=== PATIENT | female | born 1980 | race Hispanic/Latino ===

== ENCOUNTER 2018-11-04 07:30 | Inpatient (IN) | payer OTHER, SELFPAY ==
[2018-11-07] MEDS ORDERED: CEFAZOLIN/SWI 2gm 2 GM/20 ML SYR IV SCH
[2018-11-07] MEDS ORDERED: CEFAZOLIN 2 GM in NA CHLORIDE 0.9% 100 ML IVPB ONE (13:47)
[2018-11-07 14:09] LABS: Absolute Lymphocytes (CBC) 1.2 K/uL (0.7-4.9); Basophils % 0.4 % (0-1.3); Hematocrit 36.2 % (36.0-45.0); Lymphocytes % 15.2 % (15.3-44.8); MPV 8.5 fL (7.6-11.3); RBC Red Blood Cell Count 4.08 M/uL (3.86-4.86)
[2018-11-07 14:12] LABS: Urine Appearance TURBID; Urine Bilirubin NEGATIVE (NEG); Urine Blood NEGATIVE (NEG); Urine Color YELLOW; Urine Glucose NEGATIVE (NEG); Urine Microscopic Reflex ORDER UMIC; Urine Protein TRACE (NEG); Urine Urobilinogen 0.2 mg/dL (0.2-1.0); Urine pH 6.5 (5.0-7.0)
[2018-11-07 14:14] LABS: Protime INR 0.89
[2018-11-07 14:20] LABS: Urine Bacteria LOADED /HPF (<20); Urine Culture Reflex Order REFLEXED; Urine Mucus 2+ /HPF (NONE SEEN)
[2018-11-07 22:24] LABS: RPR (Rapid Plasma Reagin) NON-REACT (NON-REACT)
[2018-11-08] MEDS ORDERED: Ringers Lactate 2,000 ML IV ONE (03:48)
--- OUTSIDE RECORDS SUMMARY | 2018-11-08 04:26 | XMS REPORT ---
:1980 [facility] Address [address] [place] [address] Dr. Maldonado [address] [place] [id number] Care Team Providers Name Role Phone Unavailable Unavailable Unavailable Problems This patient has no known problems. Allergies, Adverse Reactions, Alerts This patient has no known allergies or adverse reactions. Medications This patient has no known medications.
[2018-11-08] MEDS ORDERED: Ringers Lactate 1,000 ML IV PRN (04:41)
[2018-11-08] MEDS ORDERED: NA CIT/CITRIC AC 30 ML ORAL UDC PO ONE (04:44)
[2018-11-08 04:53] VITALS: BMI 30.7
[2018-11-08] MEDS ORDERED: METOCLOPRAMIDE 10 MG/2mL INJ IV SCH (05:00)
[2018-11-08] MEDS ORDERED: Ringers Lactate 1,000 ML IV SCH (05:00)
[2018-11-08] MEDS ORDERED: CEFAZOLIN 2 GM in NA CHLORIDE 0.9% 100 ML IVPB SCH (05:00)
[2018-11-08] MEDS ORDERED: CEFAZOLIN/SWI 2gm 2 GM/20 ML SYR ONE (05:54)
[2018-11-08] MEDS ORDERED: MORPHINE SULFATE/PF 1 MG/ML (10 ML AMP) ONE (07:19)
[2018-11-08] MEDS ORDERED: METHYLERGONOVINE 0.2MG/ML AMP IM ONE (07:25)
[2018-11-08] MEDS ORDERED: CARBOPROST TROME 250 MCG/ML IM ONE (07:25)
[2018-11-08] MEDS ORDERED: OXYTOCIN 10 UNIT/ML ML IV ONE ×3 (07:34→07:55)
[2018-11-08] MEDS ORDERED: ONDANSETRON 4 MG (ODT) TAB PO PRN (08:16)
[2018-11-08] MEDS ORDERED: DIPHENHYDRAMINE 25 MG TAB/CAP PO PRN (08:16)
[2018-11-08] MEDS ORDERED: ONDANSETRON 4 MG/2 ML VIAL IV PRN (08:16)
[2018-11-08] MEDS ORDERED: CEFAZOLIN/SWI 1gm 1 GM/10 ML SYR IV SCH (08:16)
[2018-11-08] MEDS ORDERED: KETOROLAC 30 MG/ML INJ IM PRN (08:16)
[2018-11-08] MEDS ORDERED: BISACODYL 10 MG RECTAL SUPP RECT PRN (08:16)
[2018-11-08] MEDS ORDERED: ACETAMINOPHEN 500 MG TAB PO PRN ×2 (08:16)
[2018-11-08] MEDS ORDERED: D5LR 1,000 ML with OXYTOCIN 20 UNIT IV SCH ×2 (09:00)
[2018-11-08] MEDS ORDERED: FAMOTIDINE 20 MG/2 ML VIAL IV SCH (09:00)
[2018-11-08] MEDS ORDERED: OXYTOCIN/LR 20 UNIT/1,000 ML BAG IV SCH (09:00)
[2018-11-08] MEDS: METHYLERGONOVINE 0.2 MG TAB PO PRN ×3 (12:26→20:03)
[2018-11-08] MEDS: KETOROLAC 30 MG/ML INJ IV PRN (16:08)
[2018-11-08] MEDS ORDERED: Ringers Lactate 1,000 ML IV ONE (16:40)
--- NOTE | 2018-11-08 19:00 | OP ---
Surgeon: Emery Maravilla MD Rounding Machine Operator: John Thao M.D. Anesthesiologist: Spinal block anesthesia by Dr. Tapia. Indications: A 37-year-old 4, para 3, last delivery by section for repeat section. Infection, blood loss, anesthetic complications, injury to bladder, bowel, ureter, postoper ative complications, clots in legs, and pneumonia discussed. The patient knows fully well this does not constitute all the possible problems that could occur during or following surgery and knows with each the risk for complications is greater. Description Of Procedure: After time out, a Pfannenstiel incision was created over the previous inci miracle site. The incision was carried to the fascia. The fascia was incised and incision carried wallace sversely bilaterally. Anterior fascial plane was developed with both blunt and sharp dissection. Th e underlying rectus muscle was . Peritoneum entered bluntly. Bladder flap developed. Low transverse uterine incision created. An estimated 7-pound plus or minus female was delivered without difficulties. Apgars 9 and 9. Cord blood specimen was obtained. Placenta was removed manually. U terus cleared of clot and blood and exteriorized. Baby had nuchal cord x1. Moderate hypotonus, 0.2 mg of Methergine IM and 10 units of Pitocin into the myometrium. Estimated blood loss 1200 mL. The cervical os dilated with ring clamp. Uterus closed with a running locked stitch of 1 chromic. Gutte rs cleared of clot and blood. Uterus was replaced in peritoneal cavity. No further bleeding was see n. Muscles closed with 0 Vicryl ibcevy-yx-aoeqt stitch in the right rectus muscle for complete hemos tasis of small tear at that point. Fascia closed with 1 Vicryl running from either angle to the midl ine. Subcutaneous tissue closed with 2-0 plain. Absorbable lazaro placed and then metal lazaro. Patient had been given 2 g of Ancef prior to the procedure. Tolerated all procedures well. Transfer red back to her room in good condition. Final Diagnoses: Term intrauterine . Repeat section. Spinal block anesthesia. M oderate uterine hypotonus. DARIEL/ROSIE Voice ID: [id number] Report ID: [id number]
[2018-11-08] MEDS: Oxycodone HCl/Acetaminophen 1 TAB TAB PO PRN (22:15)
[2018-11-09] MEDS: METHYLERGONOVINE 0.2 MG TAB PO PRN
[2018-11-09] MEDS: KETOROLAC 30 MG/ML INJ IV PRN (06:05)
[2018-11-09] MEDS: IBUPROFEN 200 MG TAB PO PRN ×3 (07:26→20:50)
[2018-11-09] MEDS ORDERED: MAGNESIUM HYDROXIDE 8% 30 ML PO PRN (08:16)
--- NOTE | 2018-11-09 08:52 | PN ---
Mallika Shaw looking quite good this morning. H and H with minimal change. Lochia is normal. Vital signs are all stable. We will discontinue Piper and IV. Get her to start ambulating. She can eat this morning if she is hungry. Patient knows if she does well today, she can go home tomorrow. No p ost spinal block problems. Doing quite well. DARIEL/ROSIE Voice ID: [id number] Report ID: [id number]
[2018-11-09] MEDS: Oxycodone HCl/Acetaminophen 1 TAB TAB PO PRN ×2 (11:35→17:48)
[2018-11-10 07:53] VITALS: BP 97/66; TEMP 98
[2018-11-10] MEDS: Oxycodone HCl/Acetaminophen 1 TAB TAB PO PRN (09:13)
[2018-11-10 13:20] LABS: HBsAG Nonreactive (Nonreactive)
--- NOTE | 2018-11-11 09:09 | DS ---
Date of Discharge: 11/10/2018 Hospital Course: A 37-year-old, 4, para 3, for repeat section at 39+ weeks. Delive red of a 7-pound 5-ounce female, Apgars 9 and 9, spinal block anesthesia, low-transverse uterine inci miracle. Moderate hypertonus, 0.2 mg of Methergine IM and 10 units of Pitocin intramuscular. Estimated blood loss at time of surgery 1200 cc. Postoperatively, H and H did not change significantly. Her lochia is normal. She is ambulating. She has no post spinal block problems. She is doing quite wel l. Dismissed to return to my office next week for staple removal. To report any temperature elevati on of 100 degrees or greater, severe pain, heavy bleeding, or any other type of abnormalities. Tdap has been discussed. Flu shot has been offered at my office. Dismissed with tramadol for analgesia. Final Diagnosis: Term intrauterine at 39+ weeks, repeat section, moderate uterine hypertonus. DARIEL/ROSIE Voice ID: [id number] Report ID: [id number]
== END 2018-11-10 10:10 | disposition home or self-care (01) | DRG 788 ==
LOC: 2ND-WC 11-08 04:25
PROVIDERS: ADMIT Specialist; ATTEND Specialist
PROC: 10D00Z1 Extraction of Products of Conception, Low, Open Approach (ICD-10-PCS; principal; 2018-11-08 07:37)
DX: O34.211 Maternal care for low transverse scar from previous cesarean delivery (principal); O69.81X0 Labor and delivery complicated by cord around neck, without compression, not applicable or unspecified; O62.2 Other uterine inertia; Z3A.39 39 weeks gestation of pregnancy; Z37.0 Single live birth
CPT/HCPCS: 36415; 81003; 81015; 85014; 85025; 85610; 85730; 86592; 86850; 86900; 86901; 87086; 87088; 87340; 88307; J0690; J2210; J2405; J2590; J2765